=== PATIENT | female | born 1995 | race Caucasian/White ===

== ENCOUNTER 2017-03-16 18:21 | Emergency (ER) | payer MEDICAID ==
[~2017-03-16] VITALS: Ht 162.6 cm; Wt 60.0 kg
[~2017-03-16 18:21] MED LIST: LURA40 PO
[2017-03-16 18:22] VITALS: BP 96/60; PULSE 108; RESP 13; TEMP 98.6; O2SAT 99
[2017-03-16] MEDS ORDERED: ONDA4TAB7 SL (20:19)
--- NOTE | 2017-03-16 20:42 | PD ---
HPI Chief Complaint Abdominal pain nausea and vomiting Date Seen: Mar 16, 2017 Time Seen: 20:00 Travel History International Travel<30 Days: No Contact w/Intl Traveler<30Days: No Known Affected Area: No History of Present Illness HPI 21-year-old white female at [address] Russ'zahraa secondary to her drug use, she complains of lower abdominal pain today. alSo nausea and vomiting, no bleeding or leakage of fluid. No contractions seen heart rate 140s Weeks Gestation: 21 Para: 0 : 4 History Social History Narrative Social History Patient is Dev walton ., is on Subutex Alcohol Use: Yes Tobacco Use: Yes Substance Abuse: Yes Allergies-Medications (Allergen,Severity, Reaction): Coded Allergies: No Known Allergies (Verified , 03/16/17) Home Meds Active Scripts Ondansetron Odt (Ondansetron Odt) 4 Mg Tab, 4 MG SL Q8HR Y for Nausea/Vomiting, #20 TAB 0 Refills Prov:Eduardo Denney MD R2 03/16/17 Discontinued Reported Medications Lurasidone (Latuda) 40 Mg Tab, 40 MG PO DAILY, #30 TAB 0 Refills 12/27/16 Discontinued Scripts W/O Vit A W/ Fe Fumar (Citranatal [place]) 27-1-260 Mg Cap Prov:Austin More MD 12/27/16 Review of Systems General / Constitutional: No: Fever, Weight Gain, Chills, Other Eyes: No: Diploplia, Blurred Vision, Visual changes, Pain, Photophobia HENT: No: Headaches, Vertigo, Lightheadedness Cardiovascular: No: Irregular Rhythm, Chest Pain or Discomfort, Palpitations, Tachycardia, Syncope, Varicosities, Edema, Cyanosis Respiratory: No: Cough, Short of Breath, Other Gastrointestinal: Nausea, Vomiting, Abdominal Pain, No: Diarrhea Genitourinary: No: Decreased Urinary Output, Oliguria Musculoskeletal: No: Limited ROM, Weakness, Cramping, Edema, Pain Skin: No Rash, No Itching, No Dryness, No Lumps, No Change in Pigmentation, No Change in Nails, No Alopecia, No Lesions Neurologic: No: Weakness, Dizziness, Syncope, Focal Abnormalities, Coordination Problem, Headache, Slurred Speech, Seizures Psychiatric: No: Depression, Suicidal Ideations, Homicidal Ideation Endocrine: No: Heat Intolerance, Cold Intolerance, Polydipsia, Polyuria, Other Physical Exam Vital Signs Date Time Temp Pulse Resp B/P (MAP) Pulse Ox O2 Delivery O2 Flow Rate FiO2 03/16/17 18:34 117 03/16/17 18:22 98.6 108 13 96/60 (72) 99 Narrative GENERAL: Well-nourished, well-developed patient. SKIN: Warm and dry. HEAD: Normocephalic and atraumatic. EYES: No scleral icterus. No injection or drainage. ENT: No nasal drainage noted. Mucous membranes pink. Airway patent. NECK: Supple, trachea midline. No JVD. CARDIOVASCULAR: Regular rate and rhythm without murmurs, gallops, or rubs. RESPIRATORY: Breath sounds equal bilaterally. No accessory muscle use. BREASTS: Bilateral exam showed no masses , no retractions, no nipple discharge. ABDOMEN/GI: Abdomen soft, 1+-tender, bowel sounds present, no rebound, no guarding Gravid to [-20] weeks size Fundal Height: [-At umbilicus] GENITOURINARY: External Genitalia: intact and normal in appearance BUS glands: [-] Cervix: [-Posterior] Dilatation: [-Closed] Effacement: [-] Thick Station: [-3] Presentation: [Breech seen on ultrasound-] Membranes: [intact ] Uterine Contractions: [none-] FHT's140s: EXTREMITIES: No cyanosis or edema. BACK: Nontender without obvious deformity. No CVA tenderness. NEUROLOGICAL: Awake and alert. Motor and sensory grossly within normal limits. Five out of 5 muscle strength in all muscle groups. Normal speech. Data Data Orders Orders Ob Poc Ultrasound (03/16/17 ) Labs Bedside ultrasound done by me. Shows a breech male fetus is active with normal anatomy scan and cardiac motion growth parameters at 22 weeks, placenta posterior fundal normal amniotic fluid volume MDM Interpretation(s) 21-year-old white female G for P0 at 21 weeks presents planning of abdominal pain. Denies bleeding or leakage of fluid, urinalysis here on the floor is negative, heart tones 140s and her cervix is closed and high, no blood in the vagina on exam patient has had an episode of nausea vomiting while here in OB ED Plan Plan to discharge home to bedrest, increased fluid intake to hydrate, Tylenol by mouth when necessary, and a heating pad or hot bath for comfort measures., Given a prescription for Zofran for home use. And she is to follow-up with Dr. Russ in usual fashion. Diagnosis Diagnosis: Primary Impression: Abdominal pain during in second trimester Additional Impression: Drug abuse during Disposition: 65 DISC TO [facility] Condition: Stable Scripts Ondansetron Odt (Ondansetron Odt) 4 Mg Tab 4 MG SL Q8HR Y for Nausea/Vomiting, #20 TAB 0 Refills Prov: Eduardo Denney MD R2 03/16/17 Patient Instructions: General Instructions, Labor (ED), Movement (ED), Abdominal Pain in (ED) Additional Instructions: call office Sunday, make dr aware of having been seen in [place] for abdominal pain. See if Dr russ may want to see you sooner. Patient may use a Fleets enema for constipation, also discuss constipation problems with dr Russ. Bedrest for the weekend. May take Zofran orally dissolving tablet, under tongue for nausea, every 6 hours if needed. Departure Forms: Tests/Procedures Fede De La Garza II, MD Mar 16, 2017 20:42
[2017-03-26] MEDS ORDERED: PRENCAP PO ×2 (11:40→11:41)
[2017-03-26] MEDS ORDERED: LURA40 PO ×2 (11:40→11:41)
== END 2017-03-16 20:30 ==
LOC: NEPE 18:21 → HOBED 20:30
DX: O26.892 Other specified pregnancy related conditions, second trimester (principal); O99.322 Drug use complicating pregnancy, second trimester; F19.10 Other psychoactive substance abuse, uncomplicated; Z3A.21 21 weeks gestation of pregnancy
CPT/HCPCS: 76815; 84112; 99283

== ENCOUNTER 2017-04-03 15:14 | Emergency (ER) | payer MEDICAID ==
[~2017-04-03 15:14] MED LIST changes: +PRENCAP PO
--- NOTE | 2017-04-03 16:50 | PD ---
HPI Chief Complaint Bleeding of undetermined source x 4 days (Cony Sr MD R1) Travel History International Travel<30 Days: No Contact w/Intl Traveler<30Days: No Known Affected Area: No (Cony Sr MD R1) History of Present Illness HPI This is a 21 year old female @ 18/07 with a PMH of untreated Hepatitis C and bipolar depression who presents with vaginal bleeding of undetermined source x 4 days. The patient describes the blood as bright red and intermittent. She had significant bleeding on day 1 for which she was sent to [facility] for workup. She was transferred to [facility] where it was determined that her membranes were not ruptured and she was discharged home. Today she followed up with her primary OB at [facility] who completed an ultrasound which was negative for placenta previa or abruption. She states that today she has had to change her self-made tissue pads twice. She has associated the bleeding with picking up her 18month old son. She states that she had lower abdominal cramping and back pain when the bleeding began on Sunday; however, she does is not currently experiencing pain with bleeding. She denies headache or dizziness. She confirms movement and denies contractions at this time. She states that in her previous she had one episode of bleeding sec to cervical polyps, but that bleeding resolved within a day. She denies sexual activity during this . Weeks Gestation: 24 Para: 1 : 4 Miscarriage: 1 : 1 (Cony Sr MD R1) History Past Medical History Narrative Medical Hepatitis C -diagnosed 2015 -untreated -most recent labwork revealed elevated liver enzymes -has an order for Hepatitis C viral load Bipolar depression -Latuda 40mg daily -mood stable (Cony Sr MD R1) Obstetric History Obstetric History -Four pregnancies -1 ectopic -1 elective -1 live (vaginal delivery, no complications) (Cony Sr MD R1) Past Surgical History Surgical History: No Previous Surgery (Cony Sr MD R1) Family History Family History: Negative (Cony Sr MD R1) Social History Alcohol Use: No Tobacco Use: Yes (1ppd smoker; quit in January 2017 d/t ) Substance Abuse: Yes (hx of opiate abuse (dilaudid)) (Cony Sr MD R1) Allergies-Medications (Allergen,Severity, Reaction): Coded Allergies: No Known Allergies (Verified , 04/03/17) Home Meds Active Scripts W/O Vit A W/ Fe Carbo (Ob Complete Petite 35-5-1-200 mg) 35 Mg Iron-5 Mg Iron-1 Mg-200 Mg Cap, 1 TAB PO DAILY, #30 BOTTLE 11 Refills Prov:Pari Garcia [facility] 03/26/17 Lurasidone (Latuda) 40 Mg Tab, 40 MG PO DAILY, #30 TAB 6 Refills Prov:Pari GarciaBrianna [facility] 03/26/17 Physical Exam Narrative GENERAL: Well-nourished, well-developed patient. SKIN: Warm and dry. HEAD: Normocephalic and atraumatic. EYES: No scleral icterus. No injection or drainage. CARDIOVASCULAR: Regular rate and rhythm without murmurs, gallops, or rubs. RESPIRATORY: Breath sounds equal bilaterally. No accessory muscle use. ABDOMEN/GI: Abdomen soft, non-tender, bowel sounds present, no rebound, no guarding Gravid to 24 weeks size GENITOURINARY: Cervix: [-] Dilatation: closed Effacement: [-] Station: [-] Presentation: [-] Membranes: [intact or ruptured] Uterine Contractions: [-] FHT's: Category: 1 Baseline: 150 Reactive: yes Variability: mod Decels: none SPECULUM: closed cervix visualized without any lesion. Opaque white-yellow discharge viewed in the vaginal vault. External genitalia normal appearing. EXTREMITIES: No cyanosis or edema. NEUROLOGICAL: Awake and alert. Motor and sensory grossly within normal limits. Normal speech. (Cony Sr MD R1) Data Data Labs Laboratory Tests Test 04/03/17 17:10 04/03/17 17:25 Fibronectin NEGATIVE Urine Opiates Screen NEG Urine Barbiturates Screen NEG Urine Amphetamines Screen NEG Urine Benzodiazepines Screen NEG Urine Cocaine Screen NEG Urine Cannabinoids Screen NEG Total Bilirubin 0.3 MG/DL Direct Bilirubin 0.1 MG/DL Indirect Bilirubin 0.2 MG/DL Aspartate Amino Transf (AST/SGOT) 100 U/L Alanine Aminotransferase (ALT/SGPT) 198 U/L Alkaline Phosphatase 83 U/L Total Protein 6.7 GM/DL Albumin 2.9 GM/DL (Brenda Licea MD) MDM Interpretation(s) Patient is a 21 y/o @24 wks who presents to OB ED triage with vaginal bleeding. Speculum exam shows no source of bleeding. Recent U/S 04/03 shows no low lying placenta. Vitals within normal limits for , patient is afebrile. No leakage of fluid, no contractions. Patient likely not in labor. Plan 1. Vaginal bleeding - per patient report, no source yet determined - order UDS - order fFN to rule out pre-term ROM or labor initiation - G&C - continue monitoring of vitals and FHT 2. Hep C+ Ab - per patient Ob, ordered hepatic function panel, CBC, HIV, Hep B, and Hep C viral load DW Dr. Licea (Cony Sr MD R1) Medical Record Reviewed: Yes Plan 21-year-old who is at 24 weeks 1 day with a history of vaginal bleeding Records were obtained from [facility] which showed a negative amnisure. fibronectin test here was negative and there is no signs of bleeding on examination, no signs of labor at this time with a closed cervix Ultrasound was performed yesterday in the office and noted to be normal Hepatitis C history in the past, both a hepatitis function panel as well as hepatitis virus load was ordered per the patient's request as this helps her by avoiding the outpatient lab Discharge home with pelvic rest, no heavy lifting, no exercise (Brenda Licea MD) Diagnosis Diagnosis: Primary Impression: Hepatitis C virus Additional Impressions: Second trimester bleeding 24 weeks gestation of Vaginal bleeding during , antepartum Disposition: 01 DISCHARGE HOME Cony Sr MD R1 Apr 03, 2017 16:50 Brenda Licea MD Apr 03, 2017 18:48
[2017-04-03 18:05] LABS: INDIRECT BILIRUBIN 0.2 MG/DL (0.0-0.8); TOTAL BILIRUBIN ADULT 0.3 MG/DL (0.2-1.0)
[2017-04-03 19:15] LABS: ALT (GPT) 192 U/L (10-53); ANION GAP 9 MEQ/L (5-15); AST (GOT) 100 U/L (15-37); BLOOD UREA NITROGEN 10 MG/DL (7-18); CHLORIDE 108 MEQ/L (98-107); GLOMERULAR FILTRATION RATE 163 ML/MIN (>89); POTASSIUM 3.6 MEQ/L (3.5-5.1); SODIUM (NA) 139 MEQ/L (136-145)
[2017-04-03 19:18] LABS: ALKALINE PHOSPHATASE 86 U/L (45-117); TOTAL BILIRUBIN ADULT 0.3 MG/DL (0.2-1.0)
[2017-04-03 20:52] LABS: CHLAMYDIA PCR NOT DETECTED (NOT DETECT); NEISSERIA PCR NOT DETECTED (NOT DETECT)
[2017-04-06 09:52] LABS: HCV RNA PCR LOGIU/ML 6.31 (0-1.18)
[2017-04-07 09:14] LABS: BATH SALTS (MDPV) UR NEG (NEG); ECSTASY (MDMA) UR NEG (NEG); HEROIN (6-ACETYLMORPHINE) UR NEG (NEG); K2 SPICE UR NEG (NEG); OBMETHADONE UR NEG (NEG); PHENCYCLIDINE URINE NEG (NEG)
[2017-04-07 09:15] LABS: GABAPENTIN UR NEG (NEG); HYDROMORPHONE U NEG (NEG)
== END 2017-04-03 19:02 | disposition home or self-care (01) ==
LOC: HOBED 15:14
DX: B19.20 Unspecified viral hepatitis C without hepatic coma (principal); O46.92 Antepartum hemorrhage, unspecified, second trimester; Z79.899 Other long term (current) drug therapy; Z86.59 Personal history of other mental and behavioral disorders; Z87.891 Personal history of nicotine dependence; Z3A.24 24 weeks gestation of pregnancy
CPT/HCPCS: 59025; 80053; 80307; 82731; 86703; 87340; 87491; 87522; 87591; 99283; G0481; 80076

== ENCOUNTER 2017-04-07 15:42 | Emergency (ER) | payer MEDICAID ==
[~2017-04-07] VITALS: Ht 162.6 cm; Wt 63.0 kg
[2017-04-07] VITALS (17 sets, daily range): BP systolic 111; BP diastolic 85; PULSE 76–173
--- NOTE | 2017-04-07 16:41 | PD ---
HPI Chief Complaint 24 weeks and 5 days Vaginal bleed 1 day Date Seen: Apr 07, 2017 Time Seen: 14:30 Travel History International Travel<30 Days: No Contact w/Intl Traveler<30Days: No Known Affected Area: No History of Present Illness HPI Pt is a 21 yo who presents to OB ED at 24 weeks and 5 days with c/o painless vaginal bleeding. care with [facility]. EDC 07-13-2016 Pt states she woke up at 14;00 in a 'pool of blood' Pt states she has had intermittent vaginal bleeding past 1 week. First episode 1 week ago, she was seen at [facility] after spotting, sent home after 'normal ultrasound' Continued spotting until 3 days later, when bleeding increased and she was seen here. Again sent home after a 'bunch of tests', Bleeding stopped after this until today. Reports no abdominal pain, but some back pain. No urinary symptoms. Active movements. Pt states she has not been sexually active in over 3 months. Weeks Gestation: 24 Para: 1 : 4 History Past Medical History Narrative Medical Bipolar Depression: Hep C Obstetric History Obstetric History Prior vaginal delivery at term 10/2015 Past Surgical History Narrative Surgical Eye surgery; Tympanoplasty Surgical History: No Previous Surgery Allergies-Medications (Allergen,Severity, Reaction): Coded Allergies: No Known Allergies (Verified , 04/07/17) Home Meds Active Scripts W/O Vit A W/ Fe Carbo (Ob Complete Petite 35-5-1-200 mg) 35 Mg Iron-5 Mg Iron-1 Mg-200 Mg Cap, 1 TAB PO DAILY, #30 BOTTLE 11 Refills Prov:Pari Garcia 03/26/17 Lurasidone (Latuda) 40 Mg Tab, 40 MG PO DAILY, #30 TAB 6 Refills Prov:Pari Garcia 03/26/17 Review of Systems Except as stated in HPI: all other systems reviewed are Neg Physical Exam Narrative GENERAL: Well-nourished, well-developed patient. SKIN: Warm and dry. HEAD: Normocephalic and atraumatic. EYES: No scleral icterus. No injection or drainage. ENT: No nasal drainage noted. Mucous membranes pink. Airway patent. NECK: Supple, trachea midline. No JVD. CARDIOVASCULAR: Regular rate and rhythm without murmurs, gallops, or rubs. RESPIRATORY: Breath sounds equal bilaterally. No accessory muscle use. BREASTS: Bilateral exam showed no masses , no retractions, no nipple discharge. ABDOMEN/GI: Abdomen soft, non-tender, bowel sounds present, no rebound, no guarding Gravid to [24.5] weeks size GENITOURINARY: External Genitalia: intact and normal in appearance SSE: cervix appears close, with raw irregular surface, No vaginal bleeding noted. Pool of cream discharge in posterir fornix, sent for wet prep Cervix: [] Dilatation: [closed] Effacement: [-] Station: [-] Presentation: [-] Membranes: [intact or ruptured] Uterine Contractions: [none] FHT's: Category: [-] Baseline: [130s] Reactive: [-] Variability: [moderate] Decels: [none] EXTREMITIES: No cyanosis or edema. BACK: Nontender without obvious deformity. No CVA tenderness. NEUROLOGICAL: Awake and alert. Motor and sensory grossly within normal limits. Five out of 5 muscle strength in all muscle groups. Normal speech. Data Data Vital Signs Reviewed: Yes [facility] Medical Record Reviewed: Yes Plan 24 weeks and 5 days . Presents with vaginal bleeding No bleeding noted on speculum. Pt subsequently had panic attack. She started with whole body tremors, rolled back eyes, and ws sweaty. Vitals were wnl, and O2 sats were wnl whole time. Pt did not lose consciousness the whole time and was able to answer questions. Pt recovered after a few minutes. We had put out Psychiatry consult but cancelled after her full recovery. Wet prep was wnl. Plan to discharge home. Diagnosis Diagnosis: Primary Impression: 24 weeks gestation of Additional Impressions: Vaginal bleeding in Panic attack Disposition: DISCHARGE HOME Condition: Kobi Villalpadno MD Apr 07, 2017 16:41
[2017-04-07 17:17] LABS: AMORPHOUS SEDIMENT, URINE RARE; BILIRUBIN, URINE NEG (NEG); BLOOD, URINE NEG (NEG); GLUCOSE,URINE NEG (NEG); KETONE, URINE NEG (NEG); NITRITE,URINE NEG (NEG); PH, URINE 7.5 (5.0-8.5); SQUAMOUS EPITHELIAL CELL URINE 4 /hpf (0-5); URINE COLOR YELLOW (YELLW/STRAW); URINE LEUKOCYTE ESTERASE NEG (NEG)
[2017-04-07 17:47] LABS: AUTOMATED NEUTROPHIL # 5.8 TH/MM3 (1.8-7.7); BASOPHIL % 0.3 % (0.0-2.0); EOSINOPHIL # 0.1 TH/MM3 (0-0.4); HEMATOCRIT 32.3 % (35.0-46.0); HEMOGLOBIN 11.1 GM/DL (11.6-15.3); LYMPHOCYTE # 2.5 TH/MM3 (1.0-4.8); MEAN CELL VOLUME 93.5 FL (80.0-100.0); MEAN CORPUSCULAR HEMOGLOBIN 32.3 PG (27.0-34.0); MEAN CORPUSCULAR HGB CONC 34.6 % (32.0-36.0); MEAN PLATELET VOLUME 7.8 FL (7.0-11.0); MONO % 4.9 % (0.0-8.0); MONOCYTE # 0.4 TH/MM3 (0-0.9); NEUT % 65.8 % (16.0-70.0); PLATELET COUNT 228 TH/MM3 (150-450); RED BLOOD COUNT 3.45 MIL/MM3 (4.00-5.30); RED CELL DISTRIBUTION WIDTH 13.2 % (11.6-17.2); WHITE BLOOD COUNT 8.8 TH/MM3 (4.0-11.0)
[2017-04-07 18:01] LABS: BICARBONATE 19.7 MEQ/L (21.0-32.0); CALCIUM 8.8 MG/DL (8.5-10.1); CREATININE 0.62 MG/DL (0.50-1.00)
== END 2017-04-07 18:20 | disposition home or self-care (01) ==
LOC: HOBED 15:42
DX: O46.92 Antepartum hemorrhage, unspecified, second trimester (principal); O99.342 Other mental disorders complicating pregnancy, second trimester; F41.0 Panic disorder [episodic paroxysmal anxiety]; F31.9 Bipolar disorder, unspecified; Z79.899 Other long term (current) drug therapy; Z3A.24 24 weeks gestation of pregnancy
CPT/HCPCS: 36415; 80048; 80307; 81001; 85025; 87210; 99284; G0481